=== PATIENT | female | born 1995 | race American Indian/Alaskan Native ===

== ENCOUNTER 2019-12-17 11:06 | Emergency (ER) | payer MEDICAID ==
[2019-12-17 11:27] VITALS: BP 122/76
[2019-12-17] MEDS ORDERED: ACETAMINOPHEN 325 MG TAB PO ONE (12:36)
[2019-12-17] MEDS ORDERED: ACETAMINOPHEN 325 MG TAB ONE (12:37)
--- NOTE | 2019-12-17 12:37 | Event Note ---
{null, ED Screening Note ED Screening Note: pt states she has generalized body aches, subjective fever, dry cough that began last night no n/v/d, congestion, rhinorrhea, no sore throat or ear pain, no dysuria, no vaginal bleeding has not taken anything states she has just been drinking pedialyte no sick contacts no pmhx no allergies to meds LNMP: 10/16/2020, has her first appt with her waste disposal attendant on 12/19/2019 }
--- NOTE | 2019-12-17 13:38 | Emergency Department Report ---
{null, - General Chief Complaint: Back Pain/Injury Stated Complaint: BACK PAIN/HEADACHE/POSS PREG Time Seen by Provider: 12/17/19 12:31 Source: patient Mode of arrival: Ambulatory Limitations: No Limitations - History of Present Illness Initial Comments: pt states she has generalized body aches, subjective fever, dry cough that began last night no n/v/d, congestion, rhinorrhea, no sore throat or ear pain, no dysuria, no vaginal bleeding has not taken anything states she has just been drinking pedialyte no sick contacts no pmhx no allergies to meds LNMP: 10/16/2020, she is currently and had confirmed at another facility, has her first appt with her composition floor setter on 12/19/2019, no abd pain or vaginal bleeding - Related Data Home Medications Medication Instructions Recorded Confirmed Last Taken OXcarbazepine [Trileptal] 150 mg PO BID 10/04/13 10/04/13 10/04/13 Tricycline 10/04/13 10/04/13 10/04/13 Previous Rx's Medication Instructions Recorded Last Taken Type predniSONE [Deltasone] 20 mg PO QDAY #6 tablet 10/04/13 Unknown Rx Amoxicillin [Trimox CAP] 500 mg PO TID #30 capsule 03/08/14 Unknown Rx Fluticasone Propionate [Flonase] 100 mcg NS QDAY #2 spray.susp 03/08/14 Unknown Rx prednisoLONE [Prednisolone] 15 ml PO QDAY 5 Days ml 03/08/14 Unknown Rx Oseltamivir [Tamiflu] 75 mg PO BID 5 Days #10 cap 12/17/19 Unknown Rx Allergies Allergy/AdvReac Type Severity Reaction Status Date / Time No Known Allergies Allergy Unverified 10/04/13 20:16 ED Review of Systems ROS: Stated complaint: BACK PAIN/HEADACHE/POSS PREG Other details as noted in HPI ED Past Medical Hx - Past Medical History Hx Hypertension: No Hx Diabetes: No Hx Deep Vein Thrombosis: No Hx Pulmonary Embolism: No Hx GERD: No Hx Renal Disease: No Hx Sickle Cell Disease: No Hx Arthritis: No Hx Headaches / Migraines: No Hx Seizures: No Hx Kidney Stones: No Hx Psychiatric Treatment: Yes (mood disorder) Hx Asthma: No Hx COPD: No Hx Dementia: No Hx HIV: No - Surgical History Hx Coronary Stent: No Hx Pacemaker: No Hx Internal Defibrillator: No Hx Cholecystectomy: No Hx Breast Surgery: No - Social History Smoking Status: Never Smoker Substance Use Type: None - Medications Home Medications: Home Medications Medication Instructions Recorded Confirmed Last Taken Type OXcarbazepine [Trileptal] 150 mg PO BID 10/04/13 10/04/13 10/04/13 History Tricycline 10/04/13 10/04/13 10/04/13 History predniSONE [Deltasone] 20 mg PO QDAY #6 tablet 10/04/13 Unknown Rx Amoxicillin [Trimox CAP] 500 mg PO TID #30 capsule 03/08/14 Unknown Rx Fluticasone Propionate [Flonase] 100 mcg NS QDAY #2 spray.susp 03/08/14 Unknown Rx prednisoLONE [Prednisolone] 15 ml PO QDAY 5 Days ml 03/08/14 Unknown Rx Oseltamivir [Tamiflu] 75 mg PO BID 5 Days #10 cap 12/17/19 Unknown Rx ED Physical Exam - General Limitations: No Limitations General appearance: alert, in no apparent distress - Head Head exam: Present: atraumatic, normocephalic - Eye Eye exam: Present: normal appearance - ENT ENT exam: Present: normal orophraynx, mucous membranes moist, TM's normal bilaterally, normal external ear exam - Respiratory Respiratory exam: Present: normal lung sounds bilaterally. Absent: respiratory distress, wheezes, rales, rhonchi, stridor, chest wall tenderness, accessory muscle use, decreased breath sounds, prolonged expiratory - Cardiovascular Cardiovascular Exam: Present: regular rate, normal rhythm, normal heart sounds. Absent: systolic murmur, diastolic murmur, rubs, gallop - Neurological Exam Neurological exam: Present: alert, oriented X3 - Psychiatric Psychiatric exam: Present: normal affect, normal mood - Skin Skin exam: Present: warm, dry, intact ED Course Vital Signs 12/17/19 12/17/19 11:26 14:07 Temperature 100.6 F H 99.5 F Pulse Rate 111 H 95 H Respiratory 18 18 Rate Blood Pressure 122/76 O2 Sat by Pulse 99 100 Oximetry ED Medical Decision Making - Lab Data Vital Signs 12/17/19 12/17/19 11:26 14:07 Temperature 100.6 F H 99.5 F Pulse Rate 111 H 95 H Respiratory 18 18 Rate Blood Pressure 122/76 O2 Sat by Pulse 99 100 Oximetry - Medical Decision Making pt states she has generalized body aches, subjective fever, dry cough that began last night no n/v/d, congestion, rhinorrhea, no sore throat or ear pain, no dysuria, no vaginal bleeding has not taken anything states she has just been drinking pedialyte no sick contacts no pmhx no allergies to meds LNMP: 10/16/2020, she is currently and had confirmed at another facility, has her first appt with her composition floor setter on 12/19/2019, no abd pain or vagin al bleeding Initial vitals with elevated temperature and heart rate which improved upon Tylenol administration Patient has clinical signs and symptoms of influenza, given that patient is and she is within the 48-hour range will give patient prescription for Tamiflu. No clinical signs and symptoms of pneumonia. advised pt to please take medication as prescribed. increase your fluid intake. get pletny of rest. may take tylenol as needed for fever or body aches. follow up with a primary care doctor/composition floor setter in the next 2-3 days. may take benadryl as needed for a cough every 8-12 hours. return to the emergency room for any new or worsening symptoms. - Differential Diagnosis Influenza, URI, PNA, viral syndrome, otitis, pharyngitis Critical care attestation.: If time is entered above; I have spent that time in minutes in the direct care of this critically ill patient, excluding procedure time. ED Disposition Clinical Impression: Influenza Disposition: DC-01 TO HOME OR SELFCARE Is pt being admited?: No Does the pt Need Aspirin: No Condition: Stable Instructions: Influenza (ED) Additional Instructions: please take medication as prescribed. increase your fluid intake. get pletny of rest. may take tylenol as needed for fever or body aches. follow up with a primary care doctor/composition floor setter in the next 2-3 days. may take benadryl as needed for a cough every 8-12 hours. return to the emergency room for any new or worsening symptoms. Prescriptions: Oseltamivir [Tamiflu] 75 mg PO BID 5 Days #10 cap Referrals: PRIMARY CARE, [Primary Care Provider] - 2-3 Days your, composition floor setter [Other] - 2-3 Days Time of Disposition: 13:57 Print Language: WOLOF }
== END 2019-12-17 14:09 | disposition home or self-care (01) ==
LOC: ED 11:06
DX: J11.1 Influenza due to unidentified influenza virus with other respiratory manifestations (principal); R51 Headache; M54.9 Dorsalgia, unspecified; F39 Unspecified mood [affective] disorder; Z79.899 Other long term (current) drug therapy
CPT/HCPCS: 99282